=== PATIENT | female | born 1995 | race Caucasian/White ===

== ENCOUNTER 2017-10-05 07:27 | Inpatient (IN) | payer MEDICAID ==
[2017-10-05] MEDS ORDERED: IBUPROFEN 600 MG TAB PO (08:30)
[2017-10-05] MEDS ORDERED: CARBOPROST 250 MCG INJ IM ×2 (08:30→17:00)
[2017-10-05] MEDS ORDERED: OXYTOCIN 30 UNITS/LR 500 ML IV ×3 (08:30→17:00)
[2017-10-05] MEDS ORDERED: BUTORPHANOL 2 MG INJ IV (08:30)
[2017-10-05] MEDS ORDERED: LIDOCAINE 1% (MPF) 30 ML INJ INJ (08:30)
[2017-10-05] MEDS ORDERED: MISOPROSTOL 200 MCG TAB PR ×2 (08:30→17:00)
[2017-10-05] MEDS ORDERED: METHYLERGONOVINE 0.2 MG INJ IM ×2 (08:30→17:00)
[2017-10-05] MEDS: LACTATED RINGER'S 1,000 ML IV* (09:22)
[2017-10-05 09:37] LABS: ADD MAN DIFF? NO
[2017-10-05 09:39] LABS: WHITE BLOOD COUNT 9.5 10^3/ul (4.8-10.8)
[2017-10-05 09:39] LABS: BASOPHILS % 0.3 % (0.0-2.0); EOSINOPHILS # 0.1 10^3/ul (0.0-0.5); EOSINOPHILS % 0.5 % (0.0-7.0); HEMATOCRIT 34.4 % (37.0-47.0); HEMOGLOBIN 11.9 g/dl (12.0-16.0); IMMATURE GRANS #M 0.03 10^3/ul; IMMATURE GRANS % (M) 0.3 %; LYMPHOCYTES # 2.8 10^3/ul (0.8-2.9); LYMPHOCYTES % 29.7 % (15.0-51.0); MEAN CORPUSCULAR HEMOGLOBIN 30.9 pg (29.0-33.0); MEAN CORPUSCULAR HGB CONC 34.6 g/dl (32.0-37.0); MEAN CORPUSCULAR VOLUME 89.4 fl (82.0-101.0); MEAN PLATELET VOLUME 10.2 fl (7.4-10.4); MONOCYTE # 0.6 10^3/ul (0.3-0.9); MONOCYTES % 6.8 % (0.0-11.0); NEUTROPHIL # 5.9 10^3/ul (1.6-7.5); NEUTROPHILS % 62.4 % (39.0-77.0); PLATELET COUNT 269 10^3/UL (140-415); RED BLOOD COUNT 3.85 10^6/ul (4.20-5.40); RED CELL DISTRIBUTION WIDTH 12.7 % (11.5-14.5)
[2017-10-05 09:58] LABS: INR 0.98; PROTIME 13.1 Sec (11.9-14.9)
[2017-10-05 09:59] LABS: PARTIAL THROMBOPLASTIN TIME 25.2 Sec (25.0-35.0)
[2017-10-05 10:29] LABS: HEPATITIS B SURFACE ANTIGEN NEGATIVE (NEGATIVE)
[2017-10-05] MEDS: OXYTOCIN 30 UNITS/LR 500 ML IV ×2 (14:15→14:16)
[2017-10-05] MEDS ORDERED: ZOLPIDEM 5 MG TAB PO (17:00)
[2017-10-05] MEDS ORDERED: OXYCODONE/ASPIRIN (4.88/325) TAB PO ×2 (17:00)
[2017-10-05] MEDS: BENZOCAINE 20% 56 ML SPRAY TOP (17:26)
[2017-10-05] MEDS: WITCH HAZEL/GLYCERIN PAD PR (17:27)
[2017-10-05] MEDS: LANOLIN 7 GM TUBE TOP (17:27)
[2017-10-05] MEDS: IBUPROFEN 600 MG TAB PO (17:27)
[2017-10-05 17:32] LABS: HIV 1&2 ANTIBODY NEGATIVE (NEGATIVE)
[2017-10-05] MEDS: SENNA/DOCUSATE NA (8.6MG/50MG) TAB PO (21:37)
[2017-10-05 21:44] LABS: RAPID PLASMA REAGIN NONREACTIVE (NR)
[2017-10-06] MEDS: IBUPROFEN 600 MG TAB PO ×5 (00:08→23:37)
[2017-10-06 09:25] LABS: ADD MAN DIFF? NO
[2017-10-06 09:36] LABS: WHITE BLOOD COUNT 13.9 10^3/ul (4.8-10.8)
[2017-10-06 09:36] LABS: BASOPHILS % 0.2 % (0.0-2.0); EOSINOPHILS # 0.1 10^3/ul (0.0-0.5); EOSINOPHILS % 0.4 % (0.0-7.0); HEMATOCRIT 36.8 % (37.0-47.0); HEMOGLOBIN 12.6 g/dl (12.0-16.0); IMMATURE GRANS #M 0.05 10^3/ul; IMMATURE GRANS % (M) 0.4 %; LYMPHOCYTES # 4.2 10^3/ul (0.8-2.9); LYMPHOCYTES % 29.9 % (15.0-51.0); MEAN CORPUSCULAR HEMOGLOBIN 30.8 pg (29.0-33.0); MEAN CORPUSCULAR HGB CONC 34.2 g/dl (32.0-37.0); MEAN PLATELET VOLUME 10.2 fl (7.4-10.4); MONOCYTE # 0.7 10^3/ul (0.3-0.9); MONOCYTES % 5.1 % (0.0-11.0); NEUTROPHIL # 8.9 10^3/ul (1.6-7.5); PLATELET COUNT 339 10^3/UL (140-415); RED BLOOD COUNT 4.09 10^6/ul (4.20-5.40); RED CELL DISTRIBUTION WIDTH 12.7 % (11.5-14.5)
[2017-10-06] MEDS: SENNA/DOCUSATE NA (8.6MG/50MG) TAB PO ×2 (10:49→21:05)
[2017-10-07] MEDS: IBUPROFEN 600 MG TAB PO ×3 (05:46→12:35)
[2017-10-07] MEDS: DIPHTH/TET/ACEL PERTUSS (ADULT) 0.5 ML VIAL IM* (09:00)
[2017-10-07] MEDS: SENNA/DOCUSATE NA (8.6MG/50MG) TAB PO (10:04)
== END 2017-10-07 12:40 | disposition home or self-care (01) | DRG 775 ==
LOC: OBT 07:27 → L-D 07:27 → OBT 08:16 → L-D 08:16 → PP1 16:29
PROVIDERS: Obstetrics & Gynecology
PROC: 10E0XZZ Delivery of Products of Conception, External Approach (ICD-10-PCS; principal; 2017-10-05)
DX: O80 Encounter for full-term uncomplicated delivery (principal); Z3A.39 39 weeks gestation of pregnancy; Z37.0 Single live birth
CPT/HCPCS: 85025; 85610; 85730; 86592; 86703; 86850; 86900; 86901; 87340